=== PATIENT | female | born 1980 | race Caucasian/White ===

== ENCOUNTER 2021-08-10 14:05 | Outpatient (REF) | payer MEDICARE, MEDICAID, SELFPAY ==
[2021-08-10 14:30] LABS: Binax Internal Control QC Valid; Binax Now Covid-19 Ag Negative (Negative); Binax Performed by: HO.BONILM
== END 2021-08-10 14:06 | disposition home or self-care (01) ==
LOC: HO.HMGCLDS 14:05
PROVIDERS: PCP Nurse Practitioner Family; Visit Provider Physician Assistant
DX: Z13.89 Encounter for screening for other disorder (principal)

== ENCOUNTER 2021-12-03 18:31 | Emergency (ER) | payer MEDICARE, MEDICAID, SELFPAY ==
--- NOTE | ~2021-12-03 | US_ITS ---
EXAMINATION: US VENOUS ULTRASOUND WITH DOPPLER LOWER EXTREMITY, BILATERAL CLINICAL INFORMATION: Pain and swelling. COMPARISON: No similar priors. TECHNIQUE: Ultrasound of the deep veins is performed from the hip to the calf with compression sonography and color and pulse Doppler assessment. Spectral analysis with color-flow imaging is performed. FINDINGS: RIGHT: There is normal venous compression and respiratory variation and augmented flow. The visualized common femoral vein, superficial femoral vein, profunda femoral vein, popliteal vein, and the trifurcation region shows no evidence of deep venous thrombosis. There is no significant popliteal fossa cyst. LEFT: There is normal venous compression and respiratory variation and augmented flow. The visualized common femoral vein, superficial femoral vein, profunda femoral vein, popliteal vein, and the trifurcation region shows no evidence of deep venous thrombosis. There is no significant popliteal fossa cyst. If the patient's symptoms persist, followup ultrasound in 5 days 7 days might be of value to exclude proximal propagation from a non-visualized calf vein. OTHERS: Fairly symmetric bilateral inguinal lymphadenopathy with preserved fatty sondra and overall benign morphology. US/US venous duplex LE BI IMPRESSION: No DVT demonstrated in the bilateral lower extremity. Bilateral inguinal lymphadenopathy, likely reactive, correlate with physical examination.
[2021-12-03 18:46] VITALS: BP 104/38; PULSE 89; RESP 18; TEMP 37; O2SAT 100; BMI 21.4
[2021-12-03 19:57] LABS: Anion Gap 9 (12-20); Blood Urea Nitrogen 8 mg/dL (9-16); Calcium 8.2 mg/dL (8.4-10.2); Carbon Dioxide 24 mmol/L (22-29); Chloride 109 mmol/L (96-108); Creatinine Clr Calc Pharmacy 100.3; Estimated Glomerular Filt Rate > 60; Glucose Random 106 mg/dL (60-115); Potassium 3.8 mmol/L (3.3-5.1); Sodium 138 mmol/L (135-145)
[2021-12-03 20:04] LABS: Mean Corpuscular HGB Conc 24.6 g/dl (31.0-35.0); Mean Corpuscular Hemoglobin 12.8 pg (27.0-33.0); NRBC Pct Auto 0.3 /100WBC (0.0-0.2); PLT CLUMP 1; Red Blood Count 3.51 X10*6/uL (4.20-5.50); Red Cell Distribution Width 23.1 % (11.0-16.0)
[2021-12-03 20:07] LABS: Mean Corpuscular Volume 52.1 fL (80.0-98.0)
[2021-12-03 20:09] LABS: Hemoglobin 4.5 g/dl (12.0-16.0)
[2021-12-03 20:10] LABS: Hematocrit 18.3 % (37.0-47.0); White Blood Count 7.7 X10*3/uL (4.8-10.8)
--- NOTE | 2021-12-03 20:17 | ECG_ITS ---
Test Reason : ADEMA Blood Pressure : / mmHG Vent. Rate : 078 BPM Atrial Rate : 078 BPM P-R Int : 146 ms QRS Dur : 074 ms QT Int : 376 ms P-R-T Axes : 081 075 067 degrees QTc Int : 428 ms Normal sinus rhythm with sinus arrhythmia Normal ECG When compared with ECG of 12-JUL-2015 18:06, Vent. rate has decreased BY 48 BPM Referred By: Lashawn Wilkes Electronically Signed By:PERRY SCHAEFER MD
[2021-12-03 20:27] LABS: Band Neutrophils Percent 1 % (3-5); Basophils Abs Manual 0.1 X10*3/uL (0.0-0.2); Basophils Percent Manual 1 % (0-2); Eosinophils Percent Manual 13 % (0-4); Lymphocytes Absolute Manual 1.3 X10*3/uL (1.2-4.9); Lymphocytes Percent Manual 17 % (20-40); Microcytosis 2+ (15-30) /OIF; Monocytes Absolute Manual 0.4 X10*3/uL (0.1-1.2); Monocytes Percent Manual 5 % (2-11); Neutrophils Absolute Manual 4.9 X10*3/uL (2.0-8.3); Neutrophils Percent Manual 63 % (45-73); Ovalocytes 1+ (5-14) /OIF; RBC Morphology NOTED
[2021-12-03 20:28] LABS: Hypochromasia 2+ (15-30) /OIF; Polychromasia 1+ (0-2) /OIF; Schistocytes 1+ (0-2) /OIF; Target Cells 1+ (5-14) /OIF; Tear Drop Cells 1+ (0-2) /OIF
[2021-12-03 20:30] LABS: D Dimer High Sensitivity < 150 NG/ML; Spherocytes 1+ (0-2) /OIF
[2021-12-03 20:31] LABS: Platelet Estimate NORMAL (NORMAL); Platelet Morphology Comment NOTED
[2021-12-03 20:32] LABS: Large Platelet PRESENT
[2021-12-03 20:35] LABS: Platelet Count 189 X10*3/uL (160-400)
--- NOTE | 2021-12-03 20:37 | ED_ITS ---
HPI - Extremity Problem General Chief complaint: Extremity Problem Stated complaint: swollen legs Time Seen by Provider: 12/03/21 20:08 Source: patient Mode of arrival: ambulatory Limitations: no limitations History of Present Illness HPI Narrative: 41 yo female with hx of anemia in the past 2020 required admission to [facility] but states she never followed up with anyone after that, hx of substance abuse in the past but is no longer using drugs at this time. She reports LE edema for 2 weeks. The patient denies OCPs she has chronic heavy periods but has no treatment for them. MD Complaint: other (leg swelling) Onset (ago): day(s) (14 days ago ) Pain Consistency: constant Location: left, right and lower extremity Quality: aching Radiation: none Relieving factors: immobilization Exacerbating factors: walking and palpation Associated symptoms: shortness of breath Context: other (denies hx of hepatitis C< travel, trauma or injury) Related Data Previous Rx's Medication Instructions Recorded albuterol sulfate 2.5 mg (3 mL) inhalation QID PRN 07/13/20 shortness of breath or wheezing 90 days #180 mL budesonide-formoterol HFA 160 2 puff inhalation BID 30 days 07/26/21 mcg-4.5 mcg/actuation aerosol #10.2 grams inhaler (Symbicort) amoxicillin 875 mg-potassium 1 tab PO Q12H #20 tabs 08/11/21 clavulanate 125 mg tablet ferrous sulfate 142 mg (45 mg 142 mg PO DAILY #30 tabs 12/04/21 iron) tablet,extended release Allergies Allergy/AdvReac Type Severity Reaction Status Date / Time No Known Allergies Allergy Unverified 12/03/21 18:46 [No Known Allergies*] Review of Systems Review of Systems: Constitutional : No Weight loss, No Fever, No Chills, pos F atigue, No Malaise ENT/Mouth : No sore throat, No Rhinorrhea Eyes: No Eye Pain, No Swelling, No Redness Cardiovascular : No Chest Pain, No SOB, pos Dyspnea on Exertion, No Orthopnea, pos Edema, No Palpitations Respiratory : No Cough, No Sputum, No Wheezing Gastrointestinal : No Nausea, No Vomiting, No Diarrhea, No Constipation, No abdominal Pain, No Hematochezia, No Melena Genitourinary : No Dysuria, No Urinary Frequency, No Hematuria, Musculoskeletal : No joint pain, No Myalgias, No Joint Swelling Skin : No Skin Lesions, No rash Neuro : No Weakness, No Numbness, No Dizziness, No Headache Psych : No Anxiety/Panic, No Depression Heme/Lymph: No Bruising, No Bleeding,No Lymphadenopathy Endocrine : No Polyuria, No Polydipsia All other systems reviewed and are negative PMFSH Past Medical History Attestation statement: The following information was validated with the patient. Medical History Anemia Cocaine abuse Heroin abuse Social History Social History (Updated 12/03/21 @ 20:38 by Lashawn Wilkes DO) Patient Tobacco Use Status: Current everyday Tobacco user Substance Use Type: Former Substance User Advance Directives: No Advance Directives Information Provided: Yes Physical Exam Vital Signs: Vital Signs: Last Vital Signs Temp 97.9 F 12/04/21 00:01 Pulse 71 12/04/21 00:01 Resp 16 12/04/21 00:01 BP 113/45 L 12/04/21 00:01 Pulse Ox 96 12/04/21 00:01 O2 Del Method 12/04/21 00:01 BMI result Body Mass Index 21.4 Appearance: Alert. Oriented X3. No acute distress. Eyes: Pupils equal, round and reactive to light. Pale sclera ENT: Pharynx normal. Neck: Normal inspection. Neck supple. CVS: Normal heart rate and rhythm. Pulses normal. Respiratory: No respiratory distress. Breath sounds normal. Abdomen: Soft and nontender. Skin: Skin warm and dry. pale skin color. Normal skin turgor. Extremities: pitting 1+ lower extremity edema. pos calf ttp Neuro: Oriented X 3. No motor deficit. No sensory deficit. Course Course Course Narrative: plan to keep overnight in the ED at this time after discussion with hospitalist given it is chronic and hx of same in past with no active bleeding will transfuse in the ED, recheck H/H on DC, start on Fe and refer to hematology Patient placed in physician observation at 1225am. The indication for observation is that the patient needs more time to see if their anemia improves or they will need to be admitted. At this time the patient is well developed well nourished, lungs clear, CV RRR, abd nontender, neuro is intact. signed out to Dr. Otoole MDM - Extremity (Nontraumatic) MDM Narrative Medical decision making narrative: 41 yo female with hx of prior substance abuse and anemia comes in with anemia - hx of same in past levels 5.6 1 year ago - at this time will transfuse 3 UPBRBCs - likely from source. No active bleeding at this time. Will obtain basic labs, transfuse, DVT studies, anticipate admission to hospital Lab Data Result diagrams: 12/03/21 19:12/03/21 19: Labs: Lab Results 12/03/21 12/03/21 12/03/21 Range/Units 19: 19: 19:22 WBC 7.7 (4.8-10.8) X10*3/uL RBC 3.51 L (4.20-5.50) X10*6/uL Hgb 4.5 L* (12.0-16.0) g/dl Hct 18.3 L* (37.0-47.0) % MCV 52.1 L (80.0-98.0) fL MCH 12.8 L (27.0-33.0) pg MCHC 24.6 L (31.0-35.0) g/dl RDW 23.1 H (11.0-16.0) % Plt Count 189 (160-400) X10*3/uL MPV Not Reportable Immature Gran % (Auto) Cancelled Neut % (Auto) Cancelled Lymph % (Auto) Cancelled [place] % (Auto) Cancelled Eos % (Auto) Cancelled Baso % (Auto) Cancelled Lymph # (Auto) Cancelled [place] # (Auto) Cancelled Eos # (Auto) Cancelled Baso # (Auto) Cancelled Abs Immat Gran (auto) Cancelled Absolute Neuts (auto) Cancelled Absolute Nucleated RBC 0.020 H (0.0-0.012) X10*3/uL Nucleated RBC % (auto) 0.3 H (0.0-0.2) /100WBC Neutrophils % (Manual) 63 (45-73) % Band Neutrophils % 1 L (3-5) % Lymphocytes % (Manual) 17 L (20-40) % Monocytes % (Manual) 5 (2-11) % Eosinophils % (Manual) 13 H (0-4) % Basophils % (Manual) 1 (0-2) % Abs Neuts (Manual) 4.9 (2.0-8.3) X10*3/uL Lymphocytes # (Manual) 1.3 (1.2-4.9) X10*3/uL Monocytes # (Manual) 0.4 (0.1-1.2) X10*3/uL Eosinophils # (Manual) 1.0 H (0.0-0.4) X10*3/uL Basophils # (Manual) 0.1 (0.0-0.2) X10*3/uL Platelet Estimate NORMAL (NORMAL) Large Platelets PRESENT Plt Morphology Comment NOTED RBC Morphology NOTED Polychromasia 1+ (0-2) /OIF Hypochromasia 2+ (15-30) /OIF Microcytosis 2+ (15-30) /OIF Spherocytes 1+ (0-2) /OIF Target Cells 1+ (5-14) /OIF Tear Drop Cells 1+ (0-2) /OIF Ovalocytes 1+ (5-14) /OIF Schistocytes 1+ (0-2) /OIF D-Dimer High Sensitivty < 150 NG/ML Sodium 138 (135-145) mmol/L Potassium 3.8 (3.3-5.1) mmol/L Chloride 109 H (96-108) mmol/L Carbon Dioxide 24 (22-29) mmol/L Anion Gap 9 L (12-20) BUN 8 L (9-16) mg/dL Creatinine 0.65 (0.5-1.4) mg/dL Estim Creat Clear Calc 100.3 Estimated GFR > 60 Random Glucose 106 (60-115) mg/dL Lactic Acid (0.5-2.0) mmol/L Calcium 8.2 L (8.4-10.2) mg/dL Iron (30-160) mcg/dL TIBC (228-428) mcg/dL % Saturation (15-50) % Unsat Iron Binding ug/dL Total Bilirubin 0.4 (0.0-1.0) mg/dL Direct Bilirubin 0.3 (0.0-0.5) mg/dL AST 17 (5-31) U/L ALT 16 (0-31) U/L Alkaline Phosphatase 88 (39-117) U/L B-Natriuretic Peptide (<100) pg/mL Total Protein 6.7 (6.5-8.0) g/dL Albumin 3.8 (3.5-5.0) g/dL Beta HCG, Quant mIU/mL Stool Occult Blood (NEGATIVE) COVID-19 (OZZY) (Negative) COVID-19 Clin Com Blood Type Antibody Screen Crossmatch 12/03/21 12/03/21 12/03/21 Range/Units 20:49 20:49 20:49 WBC (4.8-10.8) X10*3/uL RBC (4.20-5.50) X10*6/uL Hgb (12.0-16.0) g/dl Hct (37.0-47.0) % MCV (80.0-98.0) fL MCH (27.0-33.0) pg MCHC (31.0-35.0) g/dl RDW (11.0-16.0) % Plt Count (160-400) X10*3/uL MPV Immature Gran % (Auto) Neut % (Auto) Lymph % (Auto) [place] % (Auto) Eos % (Auto) Baso % (Auto) Lymph # (Auto) [place] # (Auto) Eos # (Auto) Baso # (Auto) Abs Immat Gran (auto) Absolute Neuts (auto) Absolute Nucleated RBC (0.0-0.012) X10*3/uL Nucleated RBC % (auto) (0.0-0.2) /100WBC Neutrophils % (Manual) (45-73) % Band Neutrophils % (3-5) % Lymphocytes % (Manual) (20-40) % Monocytes % (Manual) (2-11) % Eosinophils % (Manual) (0-4) % Basophils % (Manual) (0-2) % Abs Neuts (Manual) (2.0-8.3) X10*3/uL Lymphocytes # (Manual) (1.2-4.9) X10*3/uL Monocytes # (Manual) (0.1-1.2) X10*3/uL Eosinophils # (Manual) (0.0-0.4) X10*3/uL Basophils # (Manual) (0.0-0.2) X10*3/uL Platelet Estimate (NORMAL) Large Platelets Plt Morphology Comment RBC Morphology Polychromasia /OIF Hypochromasia /OIF Microcytosis /OIF Spherocytes /OIF Target Cells /OIF Tear Drop Cells /OIF Ovalocytes /OIF Schistocytes /OIF D-Dimer High Sensitivty NG/ML Sodium (135-145) mmol/L Potassium (3.3-5.1) mmol/L Chloride (96-108) mmol/L Carbon Dioxide (22-29) mmol/L Anion Gap (12-20) BUN (9-16) mg/dL Creatinine (0.5-1.4) mg/dL Estim Creat Clear Calc Estimated GFR Random Glucose (60-115) mg/dL Lactic Acid 0.7 (0.5-2.0) mmol/L Calcium (8.4-10.2) mg/dL Iron 13 L (30-160) mcg/dL TIBC 508 H (228-428) mcg/dL % Saturation 3 L (15-50) % Unsat Iron Binding 495 ug/dL Total Bilirubin (0.0-1.0) mg/dL Direct Bilirubin (0.0-0.5) mg/dL AST (5-31) U/L ALT (0-31) U/L Alkaline Phosphatase (39-117) U/L B-Natriuretic Peptide (<100) pg/mL Total Protein (6.5-8.0) g/dL Albumin (3.5-5.0) g/dL Beta HCG, Quant < 2 mIU/mL Stool Occult Blood (NEGATIVE) COVID-19 (OZZY) Negative (Negative) COVID-19 Clin Com See Note Blood Type Antibody Screen Crossmatch 12/03/21 12/03/21 12/03/21 Range/Units 20:49 21:54 22:27 WBC (4.8-10.8) X10*3/uL RBC (4.20-5.50) X10*6/uL Hgb (12.0-16.0) g/dl Hct (37.0-47.0) % MCV (80.0-98.0) fL MCH (27.0-33.0) pg MCHC (31.0-35.0) g/dl RDW (11.0-16.0) % Plt Count (160-400) X10*3/uL MPV Immature Gran % (Auto) Neut % (Auto) Lymph % (Auto) [place] % (Auto) Eos % (Auto) Baso % (Auto) Lymph # (Auto) [place] # (Auto) Eos # (Auto) Baso # (Auto) Abs Immat Gran (auto) Absolute Neuts (auto) Absolute Nucleated RBC (0.0-0.012) X10*3/uL Nucleated RBC % (auto) (0.0-0.2) /100WBC Neutrophils % (Manual) (45-73) % Band Neutrophils % (3-5) % Lymphocytes % (Manual) (20-40) % Monocytes % (Manual) (2-11) % Eosinophils % (Manual) (0-4) % Basophils % (Manual) (0-2) % Abs Neuts (Manual) (2.0-8.3) X10*3/uL Lymphocytes # (Manual) (1.2-4.9) X10*3/uL Monocytes # (Manual) (0.1-1.2) X10*3/uL Eosinophils # (Manual) (0.0-0.4) X10*3/uL Basophils # (Manual) (0.0-0.2) X10*3/uL Platelet Estimate (NORMAL) Large Platelets Plt Morphology Comment RBC Morphology Polychromasia /OIF Hypochromasia /OIF Microcytosis /OIF Spherocytes /OIF Target Cells /OIF Tear Drop Cells /OIF Ovalocytes /OIF Schistocytes /OIF D-Dimer High Sensitivty NG/ML Sodium (135-145) mmol/L Potassium (3.3-5.1) mmol/L Chloride (96-108) mmol/L Carbon Dioxide (22-29) mmol/L Anion Gap (12-20) BUN (9-16) mg/dL Creatinine (0.5-1.4) mg/dL Estim Creat Clear Calc Estimated GFR Random Glucose (60-115) mg/dL Lactic Acid (0.5-2.0) mmol/L Calcium (8.4-10.2) mg/dL Iron (30-160) mcg/dL TIBC (228-428) mcg/dL % Saturation (15-50) % Unsat Iron Binding ug/dL Total Bilirubin (0.0-1.0) mg/dL Direct Bilirubin (0.0-0.5) mg/dL AST (5-31) U/L ALT (0-31) U/L Alkaline Phosphatase (39-117) U/L B-Natriuretic Peptide 75 (<100) pg/mL Total Protein (6.5-8.0) g/dL Albumin (3.5-5.0) g/dL Beta HCG, Quant mIU/mL Stool Occult Blood NEGATIVE (NEGATIVE) COVID-19 (OZZY) (Negative) COVID-19 Clin Com Blood Type O Negative Antibody Screen NEGATIVE Crossmatch See Detail ECG Data Attestation EKG: I personally reviewed and interpreted this ECG as follows: ECG interpretation date: 12/03/21 ECG interpretation time: 22:09 Interpretation: Rate: 78 Rhythm: NSR [place]: normal Normal P waves. Normal [place]. Normal QRS complex. ST T wave : normal no EMILY qTC: normal prior studies: no acute ischemia The study has been interpreted contemporaneously by me. . Critical Care Time Critical Care Time Critical Care Time: Yes Total Critical Care Time: 60 Attestation: review of records, blood transfusion, admission to hospital I attest to this time spent taking care of the patient Discharge Plan Discharge Clinical Impression: Lower extremity edema Anemia Qualifiers: Anemia type: unspecified type Qualified Code(s): D64.9 - Anemia, unspecified Patient Disposition: Still a Patient Instructions: Iron Rich Diet (ED), Anemia (ED), Edema (ED), Blood Transfusion (DC) Additional Instructions: return to ED for any worsening symptoms or concerns you need to call our international trade analyst (blood doctor), you should also see an OBGYN if your period continues to be heavy. Prescriptions: New ferrous sulfate 142 mg (45 mg iron) tablet extended release 142 mg PO DAILY Qty: 30 0RF No Action albuterol sulfate 2.5 mg /3 mL (0.083 %) solution for nebulization 2.5 mg inhalation QID PRN (Reason: shortness of breath or wheezing) 90 Days Qty: 180 0RF budesonide-formoterol [Symbicort] 160-4.5 mcg/actuation HFA aerosol inhaler 2 puff inhalation BID 30 Days Qty: 10.2 4RF amoxicillin-pot clavulanate 875-125 mg tablet 1 tab PO Q12H Qty: 20 0RF Referrals: Ewa Yepez MD [Physician] - 1 week Mayo Hillman MD [Physician] - 1 week Stand Alone Forms: Work/School Release
[2021-12-03 20:46] LABS: Alanine Aminotransferase 16 U/L (0-31); Albumin Level 3.8 g/dL (3.5-5.0); Alkaline Phosphatase 88 U/L (39-117); Aspartate Amino Transferase 17 U/L (5-31); Bilirubin Direct 0.3 mg/dL (0.0-0.5); Bilirubin Total 0.4 mg/dL (0.0-1.0); Total Protein 6.7 g/dL (6.5-8.0)
[2021-12-03 21:10] LABS: Lactic Acid 0.7 mmol/L (0.5-2.0)
[2021-12-03 21:14] LABS: Iron 13 mcg/dL (30-160); Percent Iron Saturation 3 % (15-50); Total Iron Binding Capacity 508 mcg/dL (228-428); Unsaturated Iron Binding 495 ug/dL
[2021-12-03 21:20] LABS: HCG Quantitative < 2 mIU/mL
[2021-12-03 21:21] LABS: B Type Natriuretic Peptide 75 pg/mL (<100)
[2021-12-03 21:44] LABS: COVID-19 Test Negative (Negative); IDNOW Serial# 55D5AD1C
[2021-12-03 22:43] LABS: OBS Int Ctl Valid YES; OBS1 NEGATIVE (NEGATIVE)
[2021-12-03 23:31] VITALS: BP 105/47; PULSE 80; RESP 16; TEMP 36.6
[2021-12-03 23:46] VITALS: BP 101/46; PULSE 69; RESP 14; TEMP 36.4
[2021-12-04] VITALS (8 sets, daily range): BP systolic 96–136; BP diastolic 45–72; PULSE 66–95; RESP 12–17; TEMP 36.3–36.8; O2SAT 93–96
--- NOTE | 2021-12-04 00:56 | PC.NURSE ---
Patient tolerating blood transition w/o adverse reactions-VSS.
[2021-12-04 08:12] LABS: Hemoglobin 8.2 g/dl (12.0-16.0); SCAN SMEAR FLAG 1
[2021-12-04 08:14] LABS: Basophils Absolute Auto 0.1 X10*3/uL (0.0-0.2); Basophils Percent Auto 1.3 % (0-2); Eosinophils Absolute Auto 0.9 X10*3/uL (0.0-0.4); Eosinophils Percent Auto 9.5 % (0-4); Hematocrit 29.5 % (37.0-47.0); Imm Gran Abs Auto 0.32 X10*3/uL (0.00-0.03); Imm Gran Pct Auto 3.5 % (0.0-0.4); Lymphocytes Absolute Auto 1.5 X10*3/uL (1.2-4.9); Lymphocytes Percent Auto 16.1 % (20-40); MANUAL DIFF FLAG SCAN; Mean Corpuscular HGB Conc 27.8 g/dl (31.0-35.0); Mean Corpuscular Hemoglobin 17.3 pg (27.0-33.0); Monocytes Absolute Auto 0.8 X10*3/uL (0.1-1.2); Monocytes Percent Auto 8.7 % (2-11); NRBC Pct Auto 0.9 /100WBC (0.0-0.2); Neutrophils Absolute Auto 5.5 x10*3/uL (2.0-8.3); Neutrophils Percent Auto 60.9 % (45-73); PLT CLUMP 1; Red Blood Count 4.73 X10*6/uL (4.20-5.50); Red Cell Distribution Width 33.5 % (11.0-16.0)
[2021-12-04 08:16] LABS: Mean Corpuscular Volume 62.4 fL (80.0-98.0)
[2021-12-04 08:17] LABS: PLT ABN DIST 1
[2021-12-04 08:31] LABS: Platelet Count 188 X10*3/uL (160-400); White Blood Count 9.1 X10*3/uL (4.8-10.8)
[2021-12-04 08:32] LABS: SLIDE REVIEW VERIFIED
[2021-12-05 09:50] LABS: Folate 5.8 ng/mL (> or = 4.0); Vitamin B12 814 pg/mL (200-900)
== END 2021-12-04 10:43 | disposition home or self-care (01) ==
PROVIDERS: Emergency Medicine; Emergency Provider Emergency Medicine; PCP Nurse Practitioner Family
DX: D64.9 Anemia, unspecified (principal); R60.0 Localized edema; M79.662 Pain in left lower leg; M79.661 Pain in right lower leg; R06.02 Shortness of breath; R06.00 Dyspnea, unspecified; B19.20 Unspecified viral hepatitis C without hepatic coma; F17.200 Nicotine dependence, unspecified, uncomplicated; Z79.899 Other long term (current) drug therapy; Z20.822 Contact with and (suspected) exposure to COVID-19
CPT/HCPCS: 36415; 36430; 80048; 80076; 82272; 82607; 82746; 83540; 83605; 83880; 84702; 85007; 85025; 85027; 85379; 86850; 86900; 86901; 86923; 87635; 93005; 93970; 99284; 99285; P9016

== ENCOUNTER 2022-04-13 08:30 | Emergency (ER) | payer MEDICARE, MEDICAID, SELFPAY ==
[2022-04-13 08:35] VITALS: BP 116/59; PULSE 100; RESP 19; TEMP 36.6; O2SAT 98; BMI 21.4
[2022-04-13 08:46] VITALS: BP 119/69; PULSE 111; RESP 20; TEMP 36.8; O2SAT 96
--- NOTE | 2022-04-13 08:55 | ED.GENADULT ---
HPI - General Adult General Chief complaint: General Medical Stated complaint: methadone dose Time Seen by Provider: 04/13/22 08:36 Source: patient Mode of arrival: ambulatory Limitations: no limitations History of Present Illness HPI narrative: Patient was discharged yesterday from [facility]. Methadone dose was 65mg. Here for dosing. Severity: mild Associated symptoms: denies other symptoms Related Data Previous Rx's Medication Instructions Recorded albuterol sulfate 2.5 mg/3 mL 2.5 mg (3 mL) inhalation QID PRN 07/13/20 (0.083 %) solution for nebulization shortness of breath or wheezing 90 days #180 mL budesonide-formoterol HFA 160 2 puff inhalation BID 30 days 07/26/21 mcg-4.5 mcg/actuation aerosol #10.2 grams inhaler (Symbicort) amoxicillin 875 mg-potassium 1 tab PO Q12H #20 tabs 08/11/21 clavulanate 125 mg tablet ferrous sulfate 142 mg (45 mg 142 mg PO DAILY #30 tabs 12/04/21 iron) tablet,extended release Allergies Allergy/AdvReac Type Severity Reaction Status Date / Time No Known Allergies Allergy Unverified 12/03/21 18:46 [No Known Allergies*] Review of Systems Review of Systems: Yes all other systems are reviewed and are negative PMFSH Past Medical History Medical History Anemia Cocaine abuse Heroin abuse Social History Social History Patient Tobacco Use Status: Current everyday Tobacco user Substance Use Type: Former Substance User Advance Directives: No Advance Directives Information Provided: No Physical Exam ED Vital Signs: Vital Signs - 24 hr 04/13/22 08:35 04/13/22 08:46 Temperature 98 F 98.2 F Pulse Rate 100 111 H Respiratory Rate 19 20 Blood Pressure 116/59 L 119/69 Pulse Oximetry 98 96 Oxygen Delivery Method Room Air Room Air BMI result Body Mass Index 21.4 Const General: healthy appearing Nutritional Appearance: average body habitus Orientation/consciousness: oriented to person and patient oriented x3 Limitations: no limitations HENMT Head: Yes normal to inspection Ears: external ears normal General nose exam: Normal external nose present Mouth: Normal oral and palatal mucosa present and oropharynx normal Throat: Yes posterior oropharynx normal Eyes General: appearance normal, both eyes and all related structures Neck Neck: Yes normal visual inspection Chest Chest palpation & inspection: normal inspection of the chest Resp Auscultation: clear to auscultation bilaterally Cardio Jugular venous distension: no JVD Rate: regular rate Rhythm: regular rhythm Heart sounds: S1 normal heart sound present and S2 normal heart sound present GI Inspection: Yes normal to inspection Palpation (GI): Soft to palpation, nontender and No hepatosplenomegaly present Auscultation: normal bowel sounds General: Yes no CVA tenderness Back/Spine/Pelvis Back: no CVA tenderness Skin General skin exam: no rashes or lesions noted Neuro General: oriented to person and patient oriented x3 Cranial nerves: Yes CN's II-XII intact bilaterally Motor exam (neuro): 5/5 motor strength present throughout Extrem General: Yes normal to inspection Psych Appearance: grossly normal Discharge Plan Discharge Clinical Impression: Opiate dependence Patient Disposition: Home, Self-Care Instructions: Opioid Use Disorder (ED) Additional Instructions: patient was dosed Methadone 65 today at [facility] Prescriptions: No Action albuterol sulfate 2.5 mg /3 mL (0.083 %) solution for nebulization 2.5 mg inhalation QID PRN (Reason: shortness of breath or wheezing) 90 Days Qty: 180 0RF budesonide-formoterol [Symbicort] 160-4.5 mcg/actuation HFA aerosol inhaler 2 puff inhalation BID 30 Days Qty: 10.2 4RF ferrous sulfate 142 mg (45 mg iron) tablet extended release 142 mg PO DAILY Qty: 30 0RF amoxicillin-pot clavulanate 875-125 mg tablet 1 tab PO Q12H Qty: 20 0RF Referrals: Benny John, [employer] [Primary Care Provider] -
--- NOTE | 2022-04-13 09:15 | PC.NURSE ---
pt coming in with a sealed letter from chad ackerman for her methadon, pt dose is 65mg
--- NOTE | 2022-04-13 09:22 | HE.PHANOTE ---
[facility]
[2022-04-13] MEDS: methADONE HCl 20 MG/2 ML ORAL.CONC 65 MG PO (09:23)
== END 2022-04-13 09:30 | disposition home or self-care (01) ==
PROVIDERS: Emergency Provider Emergency Medicine; PCP Nurse Practitioner Family
DX: F11.20 Opioid dependence, uncomplicated (principal)
CPT/HCPCS: 99283; 99284

== ENCOUNTER 2022-04-14 08:37 | Emergency (ER) | payer MEDICARE, MEDICAID, SELFPAY ==
[2022-04-14 08:59] VITALS: BP 125/78; PULSE 110; RESP 16; TEMP 36.8; O2SAT 98
[2022-04-14 09:05] VITALS: BMI 21.4
--- NOTE | 2022-04-14 09:16 | ED_ITS ---
HPI - General Adult General Chief complaint: General Medical Stated complaint: methadone Time Seen by Provider: 04/14/22 08:57 Source: patient Mode of arrival: ambulatory Limitations: no limitations History of Present Illness HPI narrative: Kye is a 42-year-old female with past medical history of asthma and opiate use disorder who is here today in the emergency department for a methadone dose. She states that she has been going to [facility] for the last 4 years, but has been treated at [facility] for the last month, as she is recovering from previous heroin use. She came to the emergency department yesterday for her methadone dose as her clinic was closed and she was unable to get the medication. Tomorrow, she is following up with her clinic to receive her regular prescription. She denies fever, chills, headaches, chest pain, shortness of breath, nausea, vomiting, diarrhea, or constipation, and says she is feeling well. She would like to receive a 65 mg of methadone today as this is the dose t hat she received yesterday. She has no other concerns at this time. Related Data Previous Rx's Medication Instructions Recorded albuterol sulfate 2.5 mg/3 mL 2.5 mg (3 mL) inhalation QID PRN 07/13/20 (0.083 %) solution for nebulization shortness of breath or wheezing 90 days #180 mL budesonide-formoterol HFA 160 2 puff inhalation BID 30 days 07/26/21 mcg-4.5 mcg/actuation aerosol #10.2 grams inhaler (Symbicort) amoxicillin 875 mg-potassium 1 tab PO Q12H #20 tabs 08/11/21 clavulanate 125 mg tablet ferrous sulfate 142 mg (45 mg 142 mg PO DAILY #30 tabs 12/04/21 iron) tablet,extended release Allergies Allergy/AdvReac Type Severity Reaction Status Date / Time No Known Allergies Allergy Unverified 12/03/21 18:46 [No Known Allergies*] Review of Systems Review of Systems: Yes all other systems are reviewed and are negative Constitutional: Constitutional: Reports no additional constitutional complaints, Denies body ache(s), Denies chills, Denies fever(s), Denies headache(s) and Denies weakness Eyes: Eyes: Reports no additional eye complaints and Denies change in vision ENT: Reports system reviewed and no additional complaints, except as documented, Denies dizziness, Denies headache(s), Denies nasal congestion, Denies nasal discharge and Denies neck pain Cardiovascular: Cardiovascular: Reports no additional cardiovascular complaints, Denies chest pain, Denies leg edema and Denies dyspnea Respiratory: Respiratory: Reports no additional respiratory complaints, Denies cough and Denies dyspnea Gastrointestinal: Gastrointestinal: Reports no additional gastrointestinal complaints, Denies abdominal pain, Denies diarrhea, Denies nausea and Denies vomiting Genitourinary: Genitourinary: Reports no additional female genitourinary complaints and Denies urinary incontinence Musculoskeletal: Musculoskeletal: Reports no additional musculoskeletal complaints, Denies back pain, Denies arthralgias, Denies joint swelling, Denies neck pain, Denies numbness and Denies tingling Integumentary/Breasts: Skin/Breast: Reports system reviewed and no additional complaints, except as docu and Denies rash Neurologic: Reports system reviewed and no additional complaints, except as documented, Denies dizziness, Denies headache(s), Denies numbness, Denies tingling and Denies weakness [facility] Past Medical History Attestation statement: The following information was validated with the patient. [facility] Narrative: Past medical history: Heroin abuse, cocaine use, asthma, anemia Surgical history: none Social: Smokes 5-7 cigarettes a day Source: old records reviewed and nursing notes reviewed Medical History Anemia Cocaine abuse Heroin abuse Social History Social History Patient Tobacco Use Status: Current everyday Tobacco user Substance Use Type: Former Substance User Advance Directives: No Advance Directives Information Provided: Yes Physical Exam ED Vital Signs: Vital Signs - 24 hr 04/14/22 08:59 Temperature 98.2 F Pulse Rate 110 H Respiratory Rate 16 Blood Pressure 125/78 Pulse Oximetry 98 Oxygen Delivery Method Room Air BMI result Body Mass Index 21.4 Const General: cooperative, no acute distress, alert and awake Nutritional Appearance: average body habitus Orientation/consciousness: oriented to person, oriented to place and oriented to time Limitations: no limitations HENMT Head: Yes normal to inspection Ears: hearing grossly normal bilaterally and external ears normal General nose exam: Normal external nose present Eyes General: appearance normal, both eyes and all related structures Neck Neck: Yes normal visual inspection Resp Effort & Inspection: normal respiratory effort and able to speak in complete sentences Auscultation: clear to auscultation bilaterally Cardio Rate: regular rate Rhythm: regular rhythm Heart sounds: S1 normal heart sound present and S2 normal heart sound present Neuro General: oriented to person, oriented to place and oriented to time Medications Administered Discontinued Medications Generic Name Dose Route Start Last Admin Trade Name Freq PRN Reason Stop Dose Admin Methadone HCl 65 mg 04/14/22 09:15 04/14/22 09:34 Methadone Hcl 20 Mg/2 Ml Oral.Conc PO 04/14/22 09:16 65 mg ONCE ONE Administration Medical Decision Making MDM Narrative Medical decision making narrative: Key is a 42-year-old female with past medical history of asthma and opioid use disorder, who is here today in the emergency department for her methadone dose as her clinic is closed today. Yesterday she was seen in the ED for the same issue. She is feeling well and denies any concerns. PE is unremarkable. She was given 65 mg of methadone yesterday and this is what was given again today. She indicates she will be following up with her clinic tomorrow to receive her regular care and prescription. Medical Records Medical records reviewed: Yes I reviewed the patient's medical records. Lab Data Lab results reviewed: Yes I reviewed the patient's lab results. Discharge Plan Discharge Clinical Impression: Opioid use disorder Patient Disposition: Home, Self-Care Instructions: Opioid Use Disorder (ED) Additional Instructions: Key received 65mg of methadone on 04/14 at 0930 from our emergency department Go to your clinic tomorrow for your additional doses Prescriptions: No Action albuterol sulfate 2.5 mg /3 mL (0.083 %) solution for nebulization 2.5 mg inhalation QID PRN (Reason: shortness of breath or wheezing) 90 Days Qty: 180 0RF budesonide-formoterol [Symbicort] 160-4.5 mcg/actuation HFA aerosol inhaler 2 puff inhalation BID 30 Days Qty: 10.2 4RF ferrous sulfate 142 mg (45 mg iron) tablet extended release 142 mg PO DAILY Qty: 30 0RF amoxicillin-pot clavulanate 875-125 mg tablet 1 tab PO Q12H Qty: 20 0RF Referrals: ED Physician,Generic [Physician] - 1 week Interventions: ED Discharge Assessment Last Done: 04/14/22 09:40 Discharge Date/Time: 04/14/22 09:41
[2022-04-14] MEDS: methADONE HCl 20 MG/2 ML ORAL.CONC 65 MG PO (09:34)
== END 2022-04-14 09:41 | disposition home or self-care (01) ==
PROVIDERS: Emergency Provider Emergency Medicine Emergency Medical Services; PCP Nurse Practitioner Family
DX: F11.20 Opioid dependence, uncomplicated (principal)
CPT/HCPCS: 99282; 99283